=== PATIENT | female | born 1955 | race Caucasian/White ===

== ENCOUNTER 2017-05-16 14:52 | Emergency (ER) | payer OTHER ==
[~2017-05-16] VITALS: Ht 154.9 cm; Wt 98.0 kg
[2017-05-16 14:55] VITALS: BP 151/85
--- NOTE | 2017-05-16 15:15 | NUR ---
PT AMBULATES TO CHAIR E
--- NOTE | 2017-05-16 15:20 | NUR ---
PATIENT PRESENTS TO ED WITH C/O COUGH, FATIGUE, LOSS OF APPETITE, NOT ABLE TO SLEEP X 15 DAYS HX; DENIES RX; DENIES DENIES N/V/D; SKIN IS PINK/WARM/DRY; AAOX4 WITH EVEN AND STEADY GAIT; LUNGS CLEAR BL; HR EVEN AND REGULAR; PT DENIES ANY FEVER, SOB, OR CP AT THIS TIME; PATIENT STATES PAIN OF 10/10 AT THIS TIME; VSS; PATIENT POSITIONED FOR COMFORT; ER MD MADE AWARE OF PT STATUS.
[2017-05-16 15:58] VITALS: BP 151/85
--- NOTE | 2017-05-16 15:58 | NUR ---
Patient discharged with v/s stable. Written and verbal after care instructions given and explained. Patient alert, oriented and verbalized understanding of instructions. Ambulatory with steady gait. All questions addressed prior to discharge. ID band removed. Patient advised to follow up with PMD. Rx of PREDNISONE, MOTRIN given. Patient educated on indication of medication including possible reaction and side effects. Opportunity to ask questions provided and answered.
== END 2017-05-16 15:58 | disposition home or self-care (01) ==
LOC: MED 14:52
DX: R05 Cough (principal); R06.02 Shortness of breath; J06.9 Acute upper respiratory infection, unspecified; Z90.49 Acquired absence of other specified parts of digestive tract
CPT/HCPCS: 99283

== ENCOUNTER 2019-02-02 15:12 | Emergency (ER) | payer OTHER ==
[~2019-02-02] VITALS: Ht 160 cm; Wt 99.8 kg
[2019-02-02 15:15] VITALS: BP 160/90
--- NOTE | 2019-02-02 15:17 | NUR ---
Patient ambulated to bed 11. RN evaluating patient at bedside.
--- NOTE | 2019-02-02 15:26 | NUR ---
pt maile to xray via wheelchair.
--- NOTE | 2019-02-02 15:32 | NUR ---
Patient returned from XRAY.
--- NOTE | 2019-02-02 15:32 | NUR ---
back from xray via wheelchair.
--- NOTE | 2019-02-02 16:16 | NUR ---
LEFT SHOULDER PAIN NON RADIATING, STARTED YESTERDAY , NO TRAUMA NOR INJURY .EQUAL RADIAL PULSE. ROM LIMITED ON LEFT SHOULDER. CAPILLARY REFILL LESS THAN 3SECS.SELF MEDICATED WITH TYLENOL NO RELIEF. AWAKE ,ALERT ,AMBULATORY WITH STEADY GAIT.PAIN LEVEL 10/10.
--- NOTE | 2019-02-02 16:31 | NUR ---
dr campbell re-evaluating pt
[2019-02-02] MEDS: HYDROcodone/APAP 5/325 MG 1 TAB TAB PO ONE (16:37)
[2019-02-02] MEDS: ONDANSETRON 4 MG ODT PO ONE (16:38)
--- NOTE | 2019-02-02 16:40 | NUR ---
norco and zofran administered po by jae ayala
[2019-02-02 17:02] VITALS: BP 151/83
--- NOTE | 2019-02-02 17:02 | NUR ---
Patient discharged with v/s stable. Written and verbal after care instructions given IN M[place] and explained IN NAURUAN. Patient alert, oriented and verbalized understanding of instructions. Ambulatory with steady gait. All questions addressed prior to discharge. ID band removed. Patient advised to follow up with PMD. Rx of IBUPROFEN AND NORCO given. Patient educated on indication of medication including possible reaction and side effects. Opportunity to ask questions provided and answered. PT INSTRUCTED TO NOT DRIVE AFTER TAKING NORCO
--- NOTE | 2019-02-02 17:02 | NUR ---
NADR AT THIS TIME. PAIN 05/31
== END 2019-02-02 17:02 | disposition home or self-care (01) ==
LOC: MED 15:12
DX: M65.222 Calcific tendinitis, left upper arm (principal)
CPT/HCPCS: 73030; 99283; Q0092; Q0162

== ENCOUNTER 2019-02-06 14:42 | Emergency (ER) | payer OTHER ==
[~2019-02-06] VITALS: Ht 162.6 cm; Wt 97.5 kg
[2019-02-06 14:57] VITALS: BP 151/100
--- NOTE | 2019-02-06 15:16 | NUR ---
63 Y/O FEMALE PRESENTING WITH C/C OF LEFT SHOULDER PAIN 0/10 SINCE TUESDAY. PER PT BELIEVES THAT SHE HAS AN INFLAMED TENDON. LIMITED ROM NOTED ON ASSESSMENT. CURRENT PAIN LEVEL 0/10 AFTER TAKING PAIN MEDICATION. PT NKA. NO MEDICAL HX. NO RX. DENIES N/V/D. SIDE RAIL X1.
[2019-02-06] MEDS ORDERED: LIDOCAINE MPF 1% 10 MG/ML VIAL INJ ONE (16:15)
[2019-02-06] MEDS ORDERED: TRIAMCINOLONE 40 MG/ML 5ML VIAL IA ONE (16:15)
--- NOTE | 2019-02-06 16:31 | NUR ---
MEDICATION PLACED AT BEDSIDE, DR SWANSON MADE AWARE.
--- NOTE | 2019-02-06 17:55 | NUR ---
patient resting in bed ; side rail x1
[2019-02-06 18:01] VITALS: BP 142/87
--- NOTE | 2019-02-06 18:01 | NUR ---
kenalog and xylocaine given by dr garner at bedside
--- NOTE | 2019-02-06 18:01 | NUR ---
Patient discharged with v/s stable. Written and verbal after care instructions given and explained. Patient verbalized understanding. Ambulatory with steady gait. All questions addressed prior to discharge. Advised to follow up with PMD.
== END 2019-02-06 18:01 | disposition home or self-care (01) ==
LOC: MED 14:42
DX: M75.32 Calcific tendinitis of left shoulder (principal); R03.0 Elevated blood-pressure reading, without diagnosis of hypertension
CPT/HCPCS: 20610; 99284; J2001; J3301